=== PATIENT | female | born 1995 | race Caucasian/White ===

== ENCOUNTER 2023-03-31 09:29 | Inpatient (IN) | payer SELFPAY ==
[2023-03-31] VITALS (560 sets, daily range): BP systolic 120–138; BP diastolic 89–100; PULSE 81–104; TEMP 36.6–37.2; O2SAT 73–100
[~2023-03-31] VITALS: Ht 149.9 cm; Wt 83.6 kg
[~2023-03-31 09:29] MED LIST: AMOXICILLIN 50500 MG PO; AMOXICILLIN/CLA1 TA1 PO; APAP; BACTRIM DS 8001 TAB PO; CEPHALEXIN500 M1 PO; DEPO-PROVER150 MG/M1 IM; FLEXERIL 1010 MG/TAB PO; HYDROCO; LORTAB 5/500 501 TAB PO; NO HOME MEDICATIONS; NORCO 325 MG-51 TAB PO; PENICILLIN VK250 MG PO; PEPCID 20MG TAB20 MG PO; PERCOCET 325 MG1 TA2 PO
[2023-03-31 10:29] LABS: COLLECTION METHOD CLEAN CATCH
[2023-03-31 10:32] LABS: BASO # 0.1 K/mm3 (0.0-0.2); BASO % 0.8 % (0.0-2.0); EOS # 0.4 K/mm3 (0.0-0.7); EOS % 3.7 % (0.0-4.0); GRAN # 7.7 K/mm3 (1.4-6.5); HEMATOCRIT 46.1 % (37.0-47.0); HEMOGLOBIN 15.3 g/dl (12.5-16.0); LYMPH # 2.7 K/mm3 (1.2-3.4); LYMPH % 23.2 % (20.0-51.0); MEAN CELL VOLUME 85 fl (80.0-100.0); MEAN CORPUSCULAR HEMOGLOBIN 28 pg (27-31); MEAN CORPUSCULAR HGB CONC 33 g/dl (33.0-37.0); MONO # 0.8 K/mm3 (0.1-0.6); MONO % 6.9 % (1.7-9.3); PLATELET COUNT 470 K/mm3 (130-400); RED BLOOD COUNT 5.43 M/mm3 (4.10-5.30)
[2023-03-31 10:35] LABS: INR 1.1 (0.8-3.0); PROTHROMBIN TIME 11.8 SECONDS (9.7-12.8)
[2023-03-31 10:40] LABS: ALANINE AMINOTRANSFERASE 21 U/L (0-55); ALBUMIN 4.6 gm/dL (3.5-5.0); ALKALINE PHOSPHATASE 115 U/L (40-150); ANION GAP 17 mmol/L (7-16); AST,SGOT 29 U/L (5-34); BILIRUBIN,TOTAL 1.4 mg/dL (0.2-1.2); BLOOD UREA NITROGEN 9 mg/dL (7-19); CALCIUM 9.4 mg/dL (8.4-10.2); CARBON DIOXIDE 20 mmol/L (22-29); CHLORIDE 100 mmol/L (98-107); CREATININE, serum 0.93 mg/dL (0.57-1.11); GLUCOSE 106 mg/dL (70-99); LIPASE 17 U/L (8-78); POTASSIUM 3.4 mmol/L (3.5-4.5); SODIUM 137 mmol/L (136-145); TOTAL PROTEIN 8.4 gm/dL (6.2-8.1)
[2023-03-31 10:42] LABS: ALCOHOL(ethanol),MEDICAL < 10 mg/dL (0-10)
[2023-03-31 11:36] LABS: URINE APPEARANCE Clear (CLEAR/HAZY); URINE COLOR Yellow (YELLOW); URINE GLUCOSE Negative (NEGATIVE); URINE KETONE 2+ (NEGATIVE); URINE PROTEIN(semi-quant) 2+ (NEGATIVE); URINE UROBILINOGEN 0.2 E.U/dL (0.2-1.0)
[2023-03-31 11:37] LABS: URINE BLOOD TRACE-INTACT (NEGATIVE); URINE NITRATE Negative (NEGATIVE); URINE RBC 0-2 /hpf (0-2)
[2023-03-31 11:39] LABS: URINE BACTERIA None Seen /hpf (NONE SEEN)
[2023-03-31] MEDS ORDERED: SYNTHROID 0.10.15 MG PO (12:07)
[2023-03-31] MEDS ORDERED: KEPPRA 500MG500 MG PO (12:08)
--- NOTE | 2023-03-31 18:23 | NUR ---
PT WAS ADMITTED FOR ETOH DETOX. PT IS ALERT AND ORIENTED. STEP-MOM AT BEDSIDE. PT REFUSED LUNCH. FAMILY BROUGHT HER [place] FOR SUPPER. REMAINS STABLE ON ROUNDS. NO SIGN OF DISTRESS AT THIS TIME.
[2023-04-01] VITALS (85 sets, daily range): BP systolic 107–144; BP diastolic 69–131; PULSE 74–105; TEMP 36.5–36.8; O2SAT 69–100
[2023-04-01 05:24] LABS: BASO # 0.1 K/mm3 (0.0-0.2); EOS # 0.6 K/mm3 (0.0-0.7); EOS % 7.5 % (0.0-4.0); GRAN % 49.3 % (42.2-75.2); HEMATOCRIT 38.2 % (37.0-47.0); LYMPH # 2.7 K/mm3 (1.2-3.4); LYMPH % 33.5 % (20.0-51.0); MEAN CELL VOLUME 85 fl (80.0-100.0); MEAN CORPUSCULAR HGB CONC 33 g/dl (33.0-37.0); MEAN PLATELET VOLUME 8.8 fl (7.4-10.4); MONO # 0.7 K/mm3 (0.1-0.6); MONO % 8.5 % (1.7-9.3); RED BLOOD COUNT 4.52 M/mm3 (4.10-5.30)
[2023-04-01 05:30] LABS: HEMOGLOBIN 12.6 g/dl (12.5-16.0); MEAN CORPUSCULAR HEMOGLOBIN 28 pg (27-31); PLATELET COUNT 314 K/mm3 (130-400)
[2023-04-01 05:32] LABS: CALCIUM 8.5 mg/dL (8.4-10.2); CREATININE, serum 0.83 mg/dL (0.57-1.11); POTASSIUM 4.7 mmol/L (3.5-4.5)
--- NOTE | 2023-04-01 10:35 | NUR ---
FLOOR RUNNER reviewed pt's clinical record this morning and noted she was admitted to the ICU for delirium tremors/withdrawals secondary to alcohol use d/o on 03/31/2023. WATSON met with pt @ the bedside this morning after rounds, and she was pleasant, oriented to person, time, place and situation, but she avoided eye contact with this entry writer the entire interview. Pt reports she began drinking 1.5 years ago, after her divorce, angry that her ex-spouse won custody of her 2 sons, ages 3 and 6. Pt stated she was unemployed and suicidal, and not capable of caring for her children. She indicated she had threatened to shoot herself, but told her father and he confiscated her gun. Pt has denied SI since that time reporting at times she wishes she was . When asked if she was experiencing SI prior to her admission, pt stated, "no." FLOOR RUNNER asked pt how she was feeling today, she denied having any suicidal thoughts. She states she drinks the alcohol to "numb her pain," but is not suicidal. Pt admits to drinking 1/2 gallon of vokda a day and she drives while intoxicated. She never been stopped by police and is aware of the life-threatening and legal implications of her reckless behaviors and knows she should stop drinking. Pt reports pds of blackouts and has experienced seizures/withdrawals in the past, approx. a year ago. She also shared that her mother and paternal grandparents suffered from alcoholism. Pt, who also vapes occ, shared she had a therapist, but could not remember her name, and stated she has not seen her in 5 months. When asked if she was interested in alcohol treatment, pt stated she didn't know. However, she accepted the screening/assessment number offered by [facility], [facility], ph# [phone]. Pt is currently unemployed with no health insurance, and resides with her parents on a farm in [place], [place]. She has no primary care provider, but fills prescriptions, if needed at the [facility]. [facility] gave pt a list of primary care providers to review and select after she secures insurance. When asked if she had an advance directive-HCPOA, pt stated, "no." [facility] offered paperwork, but pt declined. No other concerns noted.
--- NOTE | 2023-04-01 11:12 | NUR ---
Initial visit; Patient thanked Record Searcher for coming in to see her. Record Searcher visited briefly and will keep Carolin in her prayers.
[2023-04-01] MEDS ORDERED: DUO-KAPS1 CAP PO (13:44)
[2023-04-01] MEDS ORDERED: NATURE'S BLEND100 M2 PO (13:44)
[2023-04-01] MEDS ORDERED: FOLIC ACID 11 MG/TA1 PO (13:44)
--- NOTE | 2023-04-01 15:04 | NUR ---
PT REMAINS STABLE ON ROUNDS. RESPIRATIONS EVEN AND UNLABORED. NO SIGN OF DISTRESS. PT DISCHARGED TO HOME.
== END 2023-04-01 14:40 | disposition home or self-care (01) | DRG 897 ==
LOC: COL.ER 09:29 → ICU 12:04
PROVIDERS: Physician Assistant; ADMIT Internal Medicine
DX: F10.131 Alcohol abuse with withdrawal delirium (principal); D68.51 Activated protein C resistance; E03.9 Hypothyroidism, unspecified; E87.6 Hypokalemia; Z88.8 Allergy status to other drugs, medicaments and biological substances; Z90.49 Acquired absence of other specified parts of digestive tract; Z79.890 Hormone replacement therapy
CPT/HCPCS: J2060; J2405; J3411; J3480; J7030